=== PATIENT | female | born 1950 | race African-American/Black ===

== ENCOUNTER 2021-11-01 14:10 | Outpatient (CLI) | payer OTHER | END 2021-11-01 14:11 | disposition home or self-care (01) | LOC: CSHWCC 14:10 | PROVIDERS: ATTEND Nurse Practitioner Family | DX: L98.421 Non-pressure chronic ulcer of back limited to breakdown of skin (principal); R59.1 Generalized enlarged lymph nodes | CPT/HCPCS: 99204; G0463 ==

== ENCOUNTER 2022-12-17 13:03 | Emergency (ER) | payer MEDICARE, OTHER ==
[~2022-12-17 13:03] MED LIST: Iopamidol 370 76% 100 ML VIAL ONE
[2022-12-17 14:12] LABS: #Basophils 0.1 10x3/uL (0.0-0.2); #Eosinphils 0.2 10x3/uL (0.0-0.5); #Monocytes 0.6 10x3/uL (0.0-1.1); #Neutrophils 5.7 10x3/uL (1.5-8.4); %Basophils 0.6 % (0.0-2.0); %Eosinophils 2.4 % (0.0-6.0); %Lymphocytes 18.8 % (18.0-47.0); %Monocytes 7.6 % (0.0-10.0); %Neutrophils 70.4 % (40.0-75.0); Hemoglobin 12.8 g/dL (12.0-15.5); Mean Corpuscular HGB CONC 34.5 g/dL (32.0-36.0); Mean Corpuscular Hemoglobin 27.2 pg (27.0-33.0); Mean Corpuscular Volume 78.8 fl (81.6-98.3); Mean Platelet Volume 10.3 fl (7.4-10.4); Platelet Count 320 10x3/uL (150-450); RBC Distribution Width 15.1 % (11.5-14.5); Red Blood Cell (RBC) Count 4.71 10x6/uL (3.90-5.03)
[2022-12-17 14:27] LABS: Anion Gap 14 mmol/L (10-20); BUN (Urea Nitrogen) 14 mg/dL (9.8-20.1); Carbon Dioxide 30 mmol/L (23-31); Chloride 98 mmol/L (98-107); Potassium 3.4 mmol/L (3.5-5.1); Sodium 139 mmol/L (136-145)
[2022-12-17 14:28] LABS: ALT (SGPT) 30 U/L (8-55); AST (SGOT) 42 U/L (5-34); Albumin 4.4 g/dL (3.4-4.8); Alkaline Phosphatase 81 U/L (40-110); Bilirubin, Total 1.3 mg/dL (0.2-1.2); Calc. Creatinine Clearance 0 mL/min (70-130); Estimated GFR 76; Globulin 3.1 g/dL (2.4-3.5); Glucose 97 mg/dL (83-110); Protein, Total 7.5 g/dL (5.8-8.1)
== END 2022-12-17 20:21 | disposition short-term general hospital (02) ==
LOC: CSHERS 13:03
DX: I26.99 Other pulmonary embolism without acute cor pulmonale (principal); R42 Dizziness and giddiness; R55 Syncope and collapse; K21.9 Gastro-esophageal reflux disease without esophagitis; E78.00 Pure hypercholesterolemia, unspecified; I10 Essential (primary) hypertension
CPT/HCPCS: 71045; 71275; 80053; 83880; 84484; 85025; 93005

== ENCOUNTER 2025-02-10 09:29 | Outpatient (CLI) | payer MEDICARE, MEDICAID | END 2025-02-10 09:30 | disposition home or self-care (01) | LOC: CSHSLEEP 09:29 | PROVIDERS: ATTEND Internal Medicine Critical Care Medicine | DX: G47.33 Obstructive sleep apnea (adult) (pediatric) (principal); R53.83 Other fatigue; R06.83 Snoring; G47.10 Hypersomnia, unspecified | CPT/HCPCS: 95800 ==

== ENCOUNTER 2025-02-14 10:47 | Outpatient (CLI) | payer MEDICARE, MEDICAID ==
[~2025-02-14 10:47] MED LIST changes: +Iopamidol 300 61% 100 ML VIAL FS ONE; -Iopamidol 370 76% 100 ML VIAL ONE
== END 2025-02-14 10:48 | disposition home or self-care (01) ==
LOC: CSHCT 10:47
PROVIDERS: ATTEND Nurse Practitioner Family
DX: R10.31 Right lower quadrant pain (principal)
CPT/HCPCS: 74178